=== PATIENT | female | born 1995 | race Caucasian/White ===

== ENCOUNTER 2019-07-10 18:09 | Emergency (ER) | payer BC ==
[2019-07-10 19:41] VITALS: BP 140/63
[2019-07-10] MEDS ORDERED: Sulfamethox/Trimethoprim DS 800/160* TAB PO ONE (20:56)
--- NOTE | 2019-07-10 21:01 | UC ---
Complaint Female HPI - HPI Summary HPI Summary: pain and burning with urination for a few days patient is also concerned she may have BV - History Of Current Complaint Chief Complaint: UCGU Stated Complaint: BURNING URINATION Time Seen by Provider: 07/10/19 20:18 Hx Obtained From: Patient Hx Last Menstrual Period: 3 weeks ago ?: No Onset/Duration: Gradual Onset Timing: Constant Pain Intensity: 4 Pain Scale Used: 0-10 Numeric Character: Burning Aggravating Factor(s): Urination Associated Signs And Symptoms: Positive: Negative. Negative: Vaginal Bleeding/ Discharge - Allergies/Home Medications Allergies/Adverse Reactions: Allergies Allergy/AdvReac Type Severity Reaction Status Date / Time hydrocodone Allergy nausea, Verified 07/10/19 19:41 rash Home Medications: Home Medications Cranberry Conc/C/Bacill Coag [Azo Cranberry Tablet] 1 each PO ONCE PRN 07/10/19 [History Confirmed 07/10/19] FluvoxaMINE (NF) [Fluvoxamine (NF)] 150 mg PO DAILY 07/10/19 [History Confirmed 07/10/19] Propranolol TAB* [Inderal TAB*] 10 mg PO DAILY 07/10/19 [History Confirmed 07/10] hydrOXYzine HCL TAB* [Atarax TAB 50 MG *] 50 mg PO DAILY 07/10/19 [History Confirmed 07/10/19] PMH/Surg Hx/FS Hx/Imm Hx Previously Healthy: No Psychological History: Other Other Psychological History: ocd - Surgical History Surgical History: Yes Surgery Procedure, Year, and Place: 2004 tonsillectomy, 2012 back surgery - Family History Known Family History: Positive: None - Social History Occupation: Employed Full-time Lives: With Family Alcohol Use: Occasionally Substance Use Type: None Smoking Status (MU): Never Smoked Tobacco Review of Systems All Other Systems Reviewed And Are Negative: Yes Constitutional: Positive: Negative Skin: Positive: Negative Eyes: Positive: Negative ENT: Positive: Negative Respiratory: Positive: Negative Cardiovascular: Positive: Negative Gastrointestinal: Positive: Negative Genitourinary: Positive: Dysuria, Frequency Motor: Positive: Negative Neurovascular: Positive: Negative Musculoskeletal: Positive: Negative Neurological: Positive: Negative Psychological: Positive: Negative Is Patient Immunocompromised?: Yes Physical Exam Triage Information Reviewed: Yes Appearance: Well-Appearing, No Pain Distress, Well-Nourished Vital Signs: Initial Vital Signs Temp 98.2 F 10/29/19 19:36 Pulse 81 07/10/19 19:36 Resp 16 07/10/19 19:36 BP 140/63 07/10/19 19:36 Pulse Ox 97 07/10/19 19:36 Vital Signs Reviewed: Yes Eye Exam: Normal Eyes: Positive: Conjunctiva Clear ENT Exam: Normal ENT: Positive: Normal ENT inspection, Hearing grossly normal. Negative: Nasal congestion, Trismus, Muffled voice, Hoarse voice Neck exam: Normal Respiratory Exam: Normal Respiratory: Positive: Chest non-tender, No respiratory distress, No accessory muscle use Cardiovascular Exam: Normal Cardiovascular: Positive: RRR, Brisk Capillary Refill Abdominal Exam: Normal Abdomen Description: Positive: Nontender, No Organomegaly, Soft. Negative: CVA Tenderness (R), CVA Tenderness (L), McBurney's Point Tenderness, Peritoneal Signs Bowel Sounds: Positive: Present Pelvic Exam: Positive: External Exam Normal, Speculum Exam Normal, Bimanual Exam Normal. Negative: Discharge, Lesions, Tender w/ Cervical Motion Musculoskeletal Exam: Normal Musculoskeletal: Positive: Strength Intact, ROM Intact, No Edema Neurological Exam: Normal Neurological: Positive: Alert, Muscle Tone Normal Psychological Exam: Normal Skin Exam: Normal Diagnostics - Laboratory Lab Results: +nitrite, +3 leukoesterase Complaint Female Dx - Course Course Of Treatment: no evidence of BV will treat for uti and then treat further based on lab studies obtain from [facility] exam,, - Differential Dx/Diagnosis Provider Diagnosis: UTI (urinary tract infection) Discharge ED - Sign-Out/Discharge Documenting (check all that apply): Patient Departure All imaging exams completed and their final reports reviewed: No Studies - Discharge Plan Condition: Stable Disposition: HOME Prescriptions: Phenazopyridine TAB* [Pyridium 100 mg TAB*] 100 mg PO TID PRN #9 tab PRN Reason: urinary pain/burning Sulfamethox/Trimethoprim DS* [Bactrim DS 800/160 TAB*] 1 tab PO BID #9 tab Patient Education Materials: Phenazopyridine (By mouth), Urinary Tract Infection in Women (ED) Referrals: [facility] [Outside] - 4 Days [facility] [Outside] (BP re check your blood pressure tonight was 140/63) - Billing Disposition and Condition Condition: STABLE Disposition: Home
[2019-07-10] MEDS: Phenazopyridine TAB* 100 MG PO ONE ×2 (21:02→21:06)
[2019-07-12 13:24] LABS: Chlamydia trachomatis NAA Negative (Negative); Neisseria gonorrhoeae (GC) NAA Negative (Negative)
== END 2019-07-10 21:16 | disposition home or self-care (01) ==
LOC: UCEAST 18:09
DX: N39.0 Urinary tract infection, site not specified (principal); Z88.5 Allergy status to narcotic agent
CPT/HCPCS: 81003; 84702; 87077; 87086; 87186; 87480; 87491; 87510; 87591; 87661; 99202; A9270-GY; G0463